=== PATIENT | male | born 1975 | race Caucasian/White ===

== ENCOUNTER 2020-11-14 00:08 | Emergency (ER) | payer SELFPAY ==
[~2020-11-14] VITALS: Ht 185.4 cm; Wt 84.0 kg
[2020-11-14] MEDS ORDERED: ONDANSETRON 2MG/ML, 2ML ONE (00:35)
[2020-11-14] MEDS ORDERED: MORPHINE SULFATE 4 MG/ML, 1ML ONE (00:36)
[2020-11-14] MEDS ORDERED: DIPH,PERTUSS(ACELL),TET VAC/PF 0.5 ML IM-VACC ONE ×2 (00:37→01:00)
[2020-11-14] MEDS ORDERED: PLEASE ENTER ALLERGIES MC SCH (01:00)
[2020-11-14] MEDS ORDERED: ONDANSETRON 2MG/ML, 2ML IVPush ONE (01:00)
[2020-11-14] MEDS ORDERED: MORPHINE SULFATE 4 MG/ML, 1ML IVPush PRN (01:00)
--- NOTE | 2020-11-14 01:09 | NUR ---
pt back from [place]
[2020-11-14 01:10] VITALS: BP 127/90
--- NOTE | 2020-11-14 01:10 | NUR ---
ice pack placed back on arm, elevated, and placed back on monitors
[2020-11-14] MEDS ORDERED: LIDOCAINE-MPF 2% ,5ML ONE (01:59)
[2020-11-14] MEDS ORDERED: LIDOCAINE 2%, 20ML SQ ONE (02:00)
[2020-11-14] MEDS ORDERED: LIDOCAINE-MPF 1%, 5ML ONE (02:20)
== END 2020-11-14 02:52 | disposition home or self-care (01) ==
LOC: ED 02:46
DX: S06.0X0A Concussion without loss of consciousness, initial encounter (principal); S42.432A Displaced fracture (avulsion) of lateral epicondyle of left humerus, initial encounter for closed fracture; S52.202A Unspecified fracture of shaft of left ulna, initial encounter for closed fracture; S52.92XA Unspecified fracture of left forearm, initial encounter for closed fracture; S01.81XA Laceration without foreign body of other part of head, initial encounter; Y04.0XXA Assault by unarmed brawl or fight, initial encounter; Y93.89 Activity, other specified; Y92.59 Other trade areas as the place of occurrence of the external cause; Y99.8 Other external cause status
CPT/HCPCS: 12051; 29105; 73060; 73080; 90471; 90715; 96374; 96375; 99284; J2270; J2405